=== PATIENT | female | born 1990 ===

== ENCOUNTER 2021-04-04 09:02 | Outpatient (CLI) | payer OTHER, SELFPAY ==
[2021-04-05 01:29] LABS: SARS-CoV-2 PCR by NAA Not Detected (NotDetected)
== END 2021-04-04 09:03 | disposition home or self-care (01) ==
LOC: CSHLAB 09:02
PROVIDERS: ATTEND Obstetrics & Gynecology
DX: Z20.822 Contact with and (suspected) exposure to COVID-19 (principal)
CPT/HCPCS: U0003; U0005

== ENCOUNTER 2021-04-09 05:11 | Inpatient (IN) | payer OTHER, SELFPAY ==
[2021-04-09 06:06] VITALS: BMI 29.4
[2021-04-09] MEDS ORDERED: Oxytocin 10 UNITS/ML VIAL ONE ×2 (06:53→08:35)
[2021-04-09] MEDS ORDERED: Ondansetron PF 4 MG/2 ML Vial ONE ×2 (06:53→09:48)
[2021-04-09] MEDS ORDERED: ePHEDrine Sulfate 50 MG/10 ML VIAL ONE (06:53)
[2021-04-09] MEDS ORDERED: Ketorolac Tromethamine 30 MG/ML VIAL ONE ×2 (06:53→19:27)
[2021-04-09] MEDS ORDERED: Phenylephrine 40 MG/NS 250 ML 250 ML ONE (06:53)
[2021-04-09] MEDS ORDERED: Morphine PF 10 MG/10 ML VIAL ONE (06:54)
[2021-04-09] MEDS ORDERED: Fentanyl 100 MCG/2 ML VIAL ONE (06:54)
[2021-04-09 07:13] LABS: Hemoglobin 11.8 g/dL (12.0-15.5); Mean Corpuscular HGB CONC 34.9 g/dL (32.0-36.0); Mean Corpuscular Hemoglobin 34.3 pg (27.0-33.0); Mean Corpuscular Volume 98.3 fl (81.6-98.3); Mean Platelet Volume 10.7 fl (7.4-10.4); Platelet Count 148 10x3/uL (150-450); RBC Distribution Width 13.2 % (11.5-14.5); Red Blood Cell (RBC) Count 3.44 10x6/uL (3.90-5.03); White Blood Cell (WBC) Count 8.4 10x3/uL (3.5-10.5)
[2021-04-09 07:48] LABS: Hep B Surf Ag Non-Reactive S/CO (NonReactive); Syphilis Antibody Nonreactive (Nonreactive); Syphilis Antibody Index 0.03 S/CO (<1.00 Non-Reactive)
[2021-04-09 07:58] LABS: HBSAg Index 0.15 S/CO (0-0.99)
[2021-04-09] MEDS ORDERED: Misoprostol 200 MCG TAB ONE (09:00)
[2021-04-09] MEDS ORDERED: NS w/ Oxytocin 30 units 500 ML ONE (09:49)
[2021-04-09] MEDS ORDERED: Famotidine/PF 20 mg/2ml Vial SLOW IVP PRN (10:14)
[2021-04-09] MEDS ORDERED: Bicitra 30 ML UDCUP PO PRN (10:14)
[2021-04-09] MEDS ORDERED: Ondansetron PF 4 MG/2 ML Vial IVP PRN (10:15)
[2021-04-09] MEDS ORDERED: Promethazine HCl 25 MG/ML VIAL IM PRN ×2 (10:15→10:48)
[2021-04-09] MEDS ORDERED: Lactated Ringer's 1,000 ML IV SCH (10:15)
[2021-04-09] MEDS ORDERED: CEFAZOLIN 2 GM in Premix Bag 1 BAG IVPB SCH (10:15)
[2021-04-09] MEDS ORDERED: hydrALAZINE 20 MG/ML VIAL SLOW IVP PRN ×2 (10:15→10:48)
[2021-04-09] MEDS ORDERED: NS w/ Oxytocin 30 units 500 ML IV SCH (10:48)
[2021-04-09] MEDS ORDERED: Simethicone Chewable 80 MG TAB PO PRN (10:48)
[2021-04-09] MEDS: Ondansetron PF 4 MG/2 ML Vial IVP PRN ×2 (13:47→17:45)
[2021-04-09] MEDS ORDERED: Ibuprofen 800 MG TAB PO SCH (14:00)
[2021-04-09] MEDS ORDERED: Misoprostol 200 MCG TAB PO SCH (15:00)
[2021-04-09] MEDS: Lanolin Ointment 7 GM TUBE TOP PRN ×2 (15:58→17:45)
[2021-04-09] MEDS: Lactated Ringer's 1,000 ML IV SCH ×2 (17:23→17:45)
[2021-04-09] MEDS ORDERED: Ketorolac Tromethamine 30 MG/ML VIAL IVP PRN (20:17)
[2021-04-09] MEDS ORDERED: Promethazine HCl 25 MG/ML VIAL IM SCH (21:00)
[2021-04-09] MEDS: Docusate Calcium (SURFAK) 240 MG CAP PO SCH (23:19)
[2021-04-10] MEDS ORDERED: Naloxone HCl 0.4 mg/ml Vial ONE (03:22)
[2021-04-10] MEDS ORDERED: Communication Order-Pharmacy FS SCH (03:30)
[2021-04-10] MEDS ORDERED: Promethazine HCl 25 MG SUPP PR PRN (03:40)
[2021-04-10] MEDS ORDERED: Ondansetron PF 4 MG/2 ML Vial IVP PRN (03:40)
[2021-04-10] MEDS ORDERED: Promethazine HCl 25 MG/ML VIAL IM PRN (03:41)
[2021-04-10] MEDS ORDERED: Naloxone HCl 0.4 mg/ml Vial IVP PRN (03:42)
[2021-04-10] MEDS ORDERED: diphenhydrAMINE 50 MG/ML VIAL IVP PRN (03:43)
[2021-04-10] MEDS ORDERED: Hydrocerin (Eucerin) Cream 120 gm Jar TOP PRN (03:44)
[2021-04-10] MEDS ORDERED: Naloxone HCl 0.4 mg/ml Vial IV PRN ×2 (03:45→03:48)
[2021-04-10 05:40] LABS: #Eosinphils 0.1 10x3/uL (0.0-0.5); #Monocytes 0.5 10x3/uL (0.0-1.1); #Neutrophils 7.6 10x3/uL (1.5-8.4); %Basophils 0.3 % (0.0-2.0); %Eosinophils 1.2 % (0.0-6.0); %Lymphocytes 17.7 % (18.0-47.0); %Monocytes 4.9 % (0.0-10.0); %Neutrophils 75.6 % (40.0-75.0); Hemoglobin 10.6 g/dL (12.0-15.5); Mean Corpuscular HGB CONC 33.9 g/dL (32.0-36.0); Mean Corpuscular Hemoglobin 34.2 pg (27.0-33.0); Mean Platelet Volume 10.5 fl (7.4-10.4); Platelet Count 149 10x3/uL (150-450); RBC Distribution Width 13.2 % (11.5-14.5); White Blood Cell (WBC) Count 10.1 10x3/uL (3.5-10.5)
[2021-04-10] MEDS: Lactated Ringer's 1,000 ML IV SCH ×3 (07:19→18:45)
[2021-04-10] MEDS: Docusate Calcium (SURFAK) 240 MG CAP PO SCH ×2 (08:25→21:13)
[2021-04-10] MEDS ORDERED: Prenatal Vitamin 1 TAB PO SCH (09:00)
[2021-04-10] MEDS ORDERED: Boostrix 0.5 ML (Tdap) VIAL IM ONE (10:48)
[2021-04-10] MEDS: Ibuprofen 800 MG TAB PO SCH ×2 (10:52→19:42)
[2021-04-10] MEDS ORDERED: Acetaminophen 325 MG TAB PO PRN (18:03)
[2021-04-10 20:35] VITALS: BP 114/68; TEMP 98.5
== END 2021-04-10 21:15 | disposition home or self-care (01) | DRG 788 ==
LOC: CSHLD 05:11 → CSHPP 10:40
PROVIDERS: ADMIT Obstetrics & Gynecology; ATTEND Obstetrics & Gynecology
PROC: 10D00Z1 Extraction of Products of Conception, Low, Open Approach (ICD-10-PCS; principal; 2021-04-09)
PROC: 10907ZC Drainage of Amniotic Fluid, Therapeutic from Products of Conception, Via Natural or Artificial Opening (ICD-10-PCS; 2021-04-09)
DX: O34.211 Maternal care for low transverse scar from previous cesarean delivery (principal); O69.81X0 Labor and delivery complicated by cord around neck, without compression, not applicable or unspecified; Z3A.39 39 weeks gestation of pregnancy; Z37.0 Single live birth
CPT/HCPCS: 36415; 51702; 85025; 85027; 86780; 86850; 86900; 86901; 87340; J1885; J2274; J2310; J2405; J3010; J7120